=== PATIENT | female | born 2000 | race Caucasian/White ===

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

== ENCOUNTER 2022-01-26 11:26 | Emergency (ER) | payer BC, SELFPAY ==
--- NOTE | 2022-01-26 11:50 | ED.SKABFB ---
HPI - Skin/Abscess/Foreign Bdy General Chief complaint: Ear Stated complaint: bumps in ear around piercing Time Seen by Provider: 01/26/22 11:50 Source: patient Mode of arrival: ambulatory Limitations: no limitations History of Present Illness HPI narrative: 21 yo F presents with c/o redness and some mild drainage from ear piercing to R ear cartilage for past 2 to 3 days. States she has had ear piercing for several months and always seems to be irritated. recently notice bump or skin growth to entrance and exit hole of earring. Concerned for keloid. All systems reviewed and negative excpet as noted above. Related Data Home Medications Medication Instructions Recorded Confirmed norelgestromin 150 mcg-e.estradiol See Rx Instructions .Route .COMPLEX 01/21/21 06/26/21 35 mcg/24 hr weekly transderm patch (Zafemy) Allergies Allergy/AdvReac Type Severity Reaction Status Date / Time cefdinir Allergy Mild Hives Verified 06/26/21 08:22 clarithromycin AdvReac Mild Nausea and Verified 06/26/21 08:22 Vomiting Review of Systems Review of Systems: CONSTITUTIONAL: Denies fever, chills, or sweats. EYES: Denies visual changes, redness, or discharge. ENT: Denies rhinorrhea, congestion, sore throat, or otalgia. CARDIOVASCULAR: Denies chest pain, palpitations, or edema. RESPIRATORY: Denies cough or dyspnea. GASTROINTESTINAL: Denies abdominal pain, nausea, vomiting, or diarrhea. GENITOURINARY: Denies dysuria or hematuria. SKIN: Denies rash or itching. Reports redness, swelling, drainage to right ear piercing. MUSCULOSKELETAL: Denies back pain, joint pain, or myalgia. NEUROLOGIC: Denies headache, numbness, or weakness. PSYCHIATRIC: Denies anxiety or depression. All other systems reviewed are negative, except as documented in HPI. [facility] Past Medical History Medical History Anemia Anxiety Ear infection Fracture of finger of left hand IgA deficiency Traumatic brain injury Surgical History Surgical History History of placement of ear tubes Family History Family History (Updated 06/26/21 @ 08:18 by MICHAEL Fernandez) Other Family history non-contributory Social History Social History Gender identity (if verbalized by the patient): Female Comments At time of signature, agree with nursing past medical, surgical, social and family history. There is no relevant family history pertinent to the presenting complaint. Exam Narrative: GENERAL: This is a well-nourished, well-developed patient, in no apparent distress. HEAD: normocephalic, atraumatic. EYES: PERRL. Sclera clear/white. Vision is grossly intact. EARS: R ear piercing at the helix into the cartilage. mild erythema, swelling. no drainage. possible keloid noted at entrance and exit of piercing. NOSE: External nose normal NECK: Neck supple, non-tender without lymphadenopathy, masses or thyromegaly. CARDIOVASCULAR: Regular rate and rhythm without murmurs, gallops, or rubs. RESPIRATORY: Clear to auscultation. Breath sounds equal bilaterally. No wheezes, rales, or rhonchi. SKIN: warm, Dry, intact with no suspicious lesions or rash, good texture and turgor. NEURO: awake, alert, and oriented to person, place and time. There were no obvious focal neurologic abnormalities. EXTREMITIES: No joint tenderness, effusion, or edema noted. Course Course Level of Care: Express Care Visit Vital Signs Vital signs: Vital Signs Pulse Rate 93 01/26/22 11:52 Respiratory Rate 16 01/26/22 11:52 Blood Pressure 130/74 01/26/22 11:52 Pulse Oximetry 100 01/26/22 11:52 Oxygen Delivery Room Air 01/26/22 11:52 Temperature 37.6 C 01/26/22 12:03 Pulse Rate 93 01/26/22 11:52 Respiratory Rate 16 01/26/22 11:52 Blood Pressure 130/74 01/26/22 11:52 Pulse Oximetry 100
[2022-01-26 11:52] VITALS: BP 130/74; PULSE 93; RESP 16; O2SAT 100
[2022-01-26 12:03] VITALS: TEMP 37.6
== END 2022-01-26 12:20 | disposition home or self-care (01) ==
PROVIDERS: Emergency Provider Nurse Practitioner Family
DX: H60.391 Other infective otitis externa, right ear (principal); D80.2 Selective deficiency of immunoglobulin A [IgA]
CPT/HCPCS: 99211; G0463

== ENCOUNTER 2022-05-14 10:28 | Emergency (ER) | payer BC, SELFPAY ==
--- NOTE | 2022-05-14 10:30 | ED.DENTAL ---
HPI - Dental/Oral General Chief complaint: Dental/Oral Stated complaint: Toothaceh/Ear Pain Time Seen by Provider: 05/14/22 10:30 Source: patient and RN notes reviewed History of Present Illness HPI Narrative: Patient is a 22-year-old female who presents to the Urgent Care with complaints of left sore throat and left ear pain. Patient states that she is aware that she has a wisdom tooth coming in and has an appointment with her oral surgeon in 2 weeks. Patient states that she does not run fevers due to her autoimmune disorder. Denies any nausea or vomiting. States that she has been using Tylenol and ibuprofen as needed for discomfort. No other acute complaints. No acute distress noted. Patient aware of the plan of care. Some parts of this dictation were generated by voice recognition software and may contain typographical and/or grammatical inaccuracies. Related Data Home Medications Medication Instructions Recorded Confirmed norelgestromin 150 mcg-e.estradiol See Rx Instructions .Route .COMPLEX 01/21/21 05/14/22 35 mcg/24 hr weekly transderm patch (Zafemy) Allergies Allergy/AdvReac Type Severity Reaction Status Date / Time cefdinir Allergy Mild Hives Verified 06/26/21 08:22 clarithromycin AdvReac Mild Nausea and Verified 06/26/21 08:22 Vomiting Review of Systems Review of Systems: CONSTITUTIONAL: Denies fever, chills, or sweats. EYES: Denies visual changes, redness, or discharge. ENT: Reports of a sore on the left side of the mouth, and left otalgia CARDIOVASCULAR: Denies chest pain, palpitations, or edema. RESPIRATORY: Denies cough or dyspnea. GASTROINTESTINAL: Denies abdominal pain, nausea, vomiting, or diarrhea. GENITOURINARY: Denies dysuria or hematuria. SKIN: Denies rash or itching. MUSCULOSKELETAL: Denies back pain, joint pain, or myalgia. All other systems reviewed are negative, except as documented in HPI. [facility] Past Medical History Medical History Anemia Anxiety Ear infection Fracture of finger of left hand IgA deficiency Traumatic brain injury Surgical History Surgical History History of placement of ear tubes Family History Family History (Updated 06/26/21 @ 08:18 by MICHAEL Fernandez) Other Family history non-contributory Social History Social History Gender identity (if verbalized by the patient): Female Comments At the time of my signature, I reviewed and agree with the nursing past medical, surgical, social, and family history. There is no relevant family history pertinent to the patient complaint. Exam Narrative: GENERAL: This is a well-nourished, well-developed patient, in no apparent distress. HEAD: normocephalic, atraumatic. EYES: PERRL. Sclera clear/white. Vision is grossly intact. EARS: External ears normal, auditory canals clear and without drainage, TMs normal without perforation. Hearing grossly intact. NOSE: External nose normal with no obvious nasal discharge, nares without redness, no rhinorrhea. THROAT: Mucous membranes moist, posterior pharynx clear. ulceration noted to the palatine tonsil of the posterior oropharynx with [id number] surrounding erythema DENTAL: notable impacted wisdom tooth without signs or symptoms of infection , #17. NECK: Neck supple, non-tender without lymphadenopathy, masses or thyromegaly. CARDIOVASCULAR: Regular rate and rhythm without murmurs, gallops, or rubs. RESPIRATORY: Clear to auscultation. Breath sounds equal bilaterally. No wheezes, rales, or rhonchi. SKIN: warm, intact with no suspicious lesions or rash, good texture and turgor. NEURO: awake, alert, and oriented to person, place and time. There were no obvious focal neurologic abnormalities. EXTREMITIES: No clubbing, cyanosis, or edema. Course Course Level of Care: [facility]
[2022-05-14 10:34] VITALS: BP 114/50; PULSE 70; RESP 16; TEMP 36.8; O2SAT 100
[2022-05-14 10:41] VITALS: BP 114/50; PULSE 70; RESP 16; TEMP 36.8; O2SAT 100
== END 2022-05-14 10:49 | disposition home or self-care (01) ==
PROVIDERS: Emergency Provider Nurse Practitioner Family
DX: K12.1 Other forms of stomatitis (principal)
CPT/HCPCS: 99213; G0463

== ENCOUNTER → 2022-12-27 11:20 | Outpatient (CLI) | payer BC, SELFPAY ==
--- NOTE | ~2022-12-27 | US_ITS ---
US breast RT complete DATE: 12/27/2022 11:43 INDICATION: Right breast lump TECHNIQUE: Real-time imaging, color flow imaging of right breast COMPARISON: None FINDINGS: At 12:00 7 cm from the nipple at the area of palpable abnormality there is a parallel circu mscribed hypoechoic 5 x 11 x 6.6 mm hypoechoic lesion without internal vascularity or posterior shado wing, benign in appearance. No suspicious mass or shadowing is detected in the right breast. IMPRESSION: Benign finding BI-RADS Category 2: Benign Reviewed, dictated and finalized at [facility]. Reviewed, dictated and finalized at location [facility].
== END ==
PROVIDERS: PCP Obstetrics & Gynecology Gynecology; Visit Provider Obstetrics & Gynecology Gynecology
DX: N63.10 Unspecified lump in the right breast, unspecified quadrant (principal)
CPT/HCPCS: 76641

== ENCOUNTER 2023-05-03 09:04 | Emergency (ER) | payer BC, SELFPAY ==
[2023-05-03 09:12] VITALS: BP 111/68; PULSE 78; RESP 16; TEMP 36.4; O2SAT 99
--- NOTE | 2023-05-03 09:27 | ED.FEMALEGU ---
HPI - Female Genitourinary General Chief complaint: Urogenital-Female Stated complaint: Urinary Problem Time Seen by Provider: 05/03/23 09:27 Source: patient Mode of arrival: ambulatory Limitations: no limitations History of Present Illness HPI Narrative: 23-year-old female presents with complaint urinary frequency, urgency, dysuria and itching after urinating. Symptoms started last night. Afebrile. Denies nausea vomiting. Patient currently on her period. Concern for urinary tract infection. All systems reviewed and negative except as noted above. Related Data Allergies Allergy/AdvReac Type Severity Reaction Status Date / Time cefdinir Allergy Mild Hives Verified 05/03/23 09:34 clarithromycin AdvReac Mild Nausea and Verified 05/03/23 09:34 Vomiting Review of Systems Review of Systems: CONSTITUTIONAL: Denies fever, chills, or sweats. EYES: Denies visual changes, redness, or discharge. ENT: Denies rhinorrhea, congestion, sore throat, or otalgia. CARDIOVASCULAR: Denies chest pain, palpitations, or edema. RESPIRATORY: Denies cough or dyspnea. GASTROINTESTINAL: Denies abdominal pain, nausea, vomiting, or diarrhea. GENITOURINARY: Reports dysuria, urgency, frequency. Denies hematuria. SKIN: Denies rash or itching. MUSCULOSKELETAL: Denies back pain, joint pain, or myalgia. NEUROLOGIC: Denies headache, numbness, or weakness. PSYCHIATRIC: Denies anxiety or depression. All other systems reviewed are negative, except as documented in HPI. [facility] Past Medical History Medical History Anemia Anxiety Ear infection Fracture of finger of left hand IgA deficiency Traumatic brain injury Surgical History Surgical History History of placement of ear tubes Family History Family History (Updated 06/26/21 @ 08:18 by MICHAEL Fernandez) Other Family history non-contributory Social History Social History Living arrangements: with family Gender identity (if verbalized by the patient): Female Comments At time of signature, agree with nursing past medical, surgical, social and family history. There is no relevant family history pertinent to the presenting complaint. Exam Narrative: GENERAL: This is a well-nourished, well-developed patient, in no apparent distress. HEAD: normocephalic, atraumatic. EYES: PERRL. Sclera clear/white. Vision is grossly intact. EARS: External ears normal NOSE: External nose normal NECK: Neck supple, non-tender without lymphadenopathy, masses or thyromegaly. CARDIOVASCULAR: Regular rate and rhythm without murmurs, gallops, or rubs. RESPIRATORY: Clear to auscultation. Breath sounds equal bilaterally. No wheezes, rales, or rhonchi. SKIN: warm, Dry, intact with no suspicious lesions or rash, good texture and turgor. NEURO: awake, alert, and oriented to person, place and time. There were no obvious focal neurologic abnormalities. EXTREMITIES: No joint tenderness, effusion, or edema noted. Course Course Level of Care: Express Care Visit Vital Signs Vital signs: Vital Signs Temperature 36.4 C 05/03/23 09:12 Pulse Rate 78 05/03/23 09:12 Respiratory Rate 16 05/03/23 09:12 Blood Pressure 111/68 05/03/23 09:12 Pulse Oximetry 99 05/03/23 09:12 Oxygen Delivery Room Air 05/03/23 09:12 Temperature 36.4 C 05/03/23 09:12 Pulse Rate 78 05/03/23 09:12 Respiratory Rate 16 05/03/23 09:12 Blood Pressure 111/68 05/03/23 09:12 Pulse Oximetry 99 05/03/23 09:12 Oxygen Delivery Room Air 05/03/23 09:12 Reviewed MDM - Female Genitourinary MDM Narrative Medical decision making narrative: Patient is aware of diagnosis, understands and agrees to treatment plan. Anticipatory guidance given. Patient agrees to follow-up as directed and is aware of reasons to seek care at
== END 2023-05-03 09:45 | disposition home or self-care (01) ==
PROVIDERS: Emergency Provider Nurse Practitioner Family; PCP Physician Assistant
DX: N39.0 Urinary tract infection, site not specified (principal); B96.20 Unspecified Escherichia coli [E. coli] as the cause of diseases classified elsewhere
CPT/HCPCS: 81003; 87077; 87086; 87186; 99213; G0463

== ENCOUNTER 2023-07-16 11:39 | Emergency (ER) | payer BC, SELFPAY ==
--- NOTE | 2023-07-16 11:44 | ED.NAVMDI ---
HPI - Nausea/Vomiting/Diarrhea General Chief complaint: Nausea/Vomiting/Diarrhea Stated complaint: Nausea/Body Ache Time Seen by Provider: 07/16/23 11:46 Source: patient and RN notes reviewed Mode of arrival: other Limitations: no limitations History of Present Illness HPI Narrative: 23-year-old female presents concern for nausea. She reports 1 week history of nausea without vomiting or diarrhea. She reports increased in urine frequency. She reports abdominal cramping. She reports she has been eating and drinking but not as much as usual. She denies abdominal pain. She reports chills and occasional body aches. She denies sore throat, cough. Reports some mild rhinorrhea nasal congestion. She reports her last menstrual period was about 3 weeks ago. She reports her urine is slightly darker than usual, otherwise denies frequency, urgency, dysuria. She reports low-grade temperature MD elicited complaint: nausea, vomiting and diarrhea Related Data Allergies Allergy/AdvReac Type Severity Reaction Status Date / Time cefdinir Allergy Mild Hives Verified 07/16/23 11:47 clarithromycin AdvReac Mild Nausea and Verified 07/16/23 11:47 Vomiting Review of Systems Review of Systems: CONSTITUTIONAL: Denies malaise. Reports chills, low-grade fever. ENT: Denies rhinorrhea, congestion, sinus pain, otalgia or sore throat. CARDIOVASCULAR: Denies chest pain, palpitations, or edema. RESPIRATORY: Denies cough or dyspnea. GASTROINTESTINAL: Denies abdominal pain,vomiting, diarrhea. Reports nausea GENITOURINARY: Denies dysuria or hematuria. MUSCULOSKELETAL: Reports myalgia. NEUROLOGIC: Denies headache. All systems reviewed & are unremarkable except as noted in HPI and below PMFSH Past Medical History Medical History Anemia Anxiety Ear infection Fracture of finger of left hand IgA deficiency Traumatic brain injury Surgical History Surgical History History of placement of ear tubes Family History Family History (Updated 06/26/21 @ 08:18 by MICHAEL Fernandez) Other Family history non-contributory Social History Social History Living arrangements: with family Gender identity (if verbalized by the patient): Female Comments At time of signature, agree with nursing past medical, surgical, social and family history. There is no relevant family history pertinent to the presenting complaint Exam Narrative: GENERAL: Well-appearing, well-nourished, and in no acute distress. HEAD: Normocephalic, atraumatic. EYES: PERRLA, conjunctivae clear, and EOMI. ENT: Nares clear, turbinates pink, no rhinorrhea or epistaxis. Mucous membranes moist. Oropharynx without edema, erythema, or lesions. Tonsils not enlarged and without exudate. NECK: Supple. No lymphadenopathy CHEST: Speaks in full sentences. No respiratory distress. HEART: Regular rate and rhythm. ABDOMEN: Soft, flat, nondistended. Mild suprapubic tenderness, otherwise nontender. No guarding, rebound tenderness, or rigidity. No pulsatile masses. Bowel sounds present in all four quadrants. No organomegaly. Negative Lowe?s sign. No periumbilical tenderness. No Supra public distension. SKIN: Warm, dry, no rash. NEURO: Alert and oriented x3. PSYCH: Normal mood and affect Course Course Emergency Course: Patient is aware of diagnosis, understands and agrees to treatment plan. Anticipatory guidance given. Patient agrees to follow-up as directed and is aware of reasons to seek care at the emergency department. Portions of this record may have been created with voice recognition software Level of Care: Express Care Visit Vital Signs Vital signs: Reviewed. MDM - Nausea/Vomiting/Diarrhea MDM Narrative Medical decision making narrative: No evidence of pancreatitis, AAA, cholecystitis, c
[2023-07-16 11:47] VITALS: BP 125/34; PULSE 101; RESP 18; TEMP 37.6; O2SAT 100
[2023-07-16 11:48] VITALS: BP 125/34; PULSE 101; RESP 18; TEMP 37.6; O2SAT 100
== END 2023-07-16 12:15 | disposition home or self-care (01) ==
PROVIDERS: Emergency Provider Nurse Practitioner; PCP Physician Assistant
DX: R11.0 Nausea (principal)
CPT/HCPCS: 81003; 81025; 87086; 87088; 99213; G0463

== ENCOUNTER 2023-07-19 07:56 | Emergency (ER) | payer BC, SELFPAY ==
[2023-07-19] VITALS (14 sets, daily range): BP systolic 94–135; BP diastolic 48–98; PULSE 74–85; RESP 14–16; TEMP 36.2–36.8; O2SAT 97–100
--- NOTE | ~2023-07-19 | CT_ITS ---
EXAMINATION: CT abdomen pelvis w con DATE: 07/19/2023 11:29 INDICATION: Right flank pain. Right lower quadrant abdominal pain. Nausea. TECHNIQUE: Computed tomography (CT) of the abdomen and pelvis was performed with 100 mL Omnipaque 350 intravenous contrast. Automated exposure control and iterative reconstruction technique were employe d. The dose-length product was 193.45 mGy-cm. COMPARISON: None. FINDINGS: The visualized portions of the lung bases are clear without pneumonia or pleural effusion. The heart size is normal. No pericardial effusion. The liver, gallbladder, spleen, pancreas, adrenal glands, and kidneys are normal. There are no dilated loops of bowel. The appendix is normal. There is a right-sided hydrosalpinx. There is physiologic fluid in the pelvis. There are no pathologically en larged lymph nodes. The bones are unremarkable. IMPRESSION: 1. Right-sided hydrosalpinx. Reviewed, dictated and finalized at location [facility]. TER
[2023-07-19 08:46] LABS: Basophils Percent Auto 0.2 % (0.2-1.2); Eosinophils Absolute Auto 0.1 K/mm3 (0-0.3); Eosinophils Percent Auto 1.7 % (0-4.4); Hematocrit 38.6 % (37.0-47.0); Hemoglobin 12.3 g/dL (12.0-15.0); Immature Granulocyte Absolute 0.02 K/mm3 (0.00-0.031); Immature Granulocyte Percent A 0.2 % (0-0.5); Lymphocytes Absolute Auto 1.24 K/mm3 (0.9-3.2); Lymphocytes Percent Auto 15.3 % (18.3-44.2); Mean Corpuscular HGB Conc 31.9 g/dl (32-36); Mean Corpuscular Hemoglobin 27.8 pg (26-34); Mean Corpuscular Volume 87.1 fl (80-100); Mean Platelet Volume 11.3 fl (7.4-10.4); Monocytes Absolute Auto 0.8 K/mm3 (0.1-0.6); Monocytes Percent Auto 9.6 % (2.6-8.5); Neutrophils Absolute Auto 5.9 K/mm3 (1.3-6.7); Platelet Count Result 297 k/mm3 (150-375); Red Blood Count 4.43 M/mm3 (4.2-5.4); White Blood Count 8.1 K/mm3 (4.5-10.0)
[2023-07-19 08:59] LABS: Alanine Aminotransferase 13 U/L (6-35); Albumin Level 4.9 g/dL (3.5-5.1); Alkaline Phosphatase 60 U/L (38-126); Anion Gap 8 mmol/L (8-16); Aspartate Amino Transferase 19 U/L (14-36); Bilirubin,Total 0.4 mg/dL (0.2-1.3); Blood Urea Nitrogen 9 mg/dL (7-17); Calcium 9.6 mg/dL (8.4-10.2); Carbon Dioxide 27 mmol/L (22-30); Chloride 107 mmol/L (98-107); Estimated Glomerular Filt Rate > 60; Glucose 90 mg/dL (65-110); Lipase 63 U/L (23-300); Potassium 3.9 mmol/L (3.4-5.0); Sodium 142 mmol/L (137-145)
[2023-07-19 09:27] LABS: Appearance Urine Clear (Clear); Bacteria Urine 1+ /hpf; Bilirubin Urine Negative (Negative); Blood Urine Negative (Negative); Color Urine Yellow (Yellow); Glucose Urine UA Negative (Negative); Ketones Urine Trace mg/dL (Negative); Leukocyte Esterase Ur Trace LEU/UL (Negative); Need Manual Microscopic Reviewed; Nitrate Urine Negative (Negative); Non Pathogenic Casts 0-2; Protein Urine Negative (Negative); RBC Urine 0-2 /hpf (0-2); Specific Grav Ur 1.022 (1.001-1.035); Squamous Epithelial Cell Urine Few /hpf (Few); Urobilinogen Urine 0.2 mg/dL (<2.0)
--- NOTE | 2023-07-19 09:33 | ED.ABDPAIN ---
HPI - Abdominal Pain General Chief Complaint: Abdominal Pain Stated Complaint: abdomen pain Time Seen by Provider: 07/19/23 09:03 History of Present Illness HPI narrative: Patient is a 23-year-old female who presents to the emergency department this afternoon complaining of nausea, RLQ abdominal pain and loss of appetite. Patient's symptoms have been ongoing for the past 2-4 weeks and patient states that her symptoms have been worsening this past week. Patient went to an urgent care and was provided Zofran, however, patient states that it has not improved her symptoms. Patient states that the pain is in the right lower quadrant region and wraps around to her right flank. She denies a urinary symptoms including dysuria or hematuria but states that she feels as though her urine output has decreased. Patient admits that she has not been drinking or eating much due to her nausea and loss of appetite. She has had some episodes of vomiting, nonbloody nonbilious emesis. Patient denies any chest pain or shortness breath at this time and denies any fevers or chills at home. She denies any exposure to sick contacts and denies any additional symptoms. The remainder of the history of present illness and review of systems is negative unless stated otherwise in the HPI. Related Data Allergies Allergy/AdvReac Type Severity Reaction Status Date / Time cefdinir Allergy Mild Hives Verified 07/16/23 11:47 clarithromycin AdvReac Mild Nausea and Verified 07/16/23 11:47 Vomiting Review of Systems Review of Systems: All systems are reviewed and are negative unless stated otherwise in the HPI. [facility] Past Medical History Medical History Anemia Anxiety Ear infection Fracture of finger of left hand IgA deficiency Traumatic brain injury Surgical History Surgical History History of placement of ear tubes Family History Family History Other Family history non-contributory Social History Social History Living arrangements: with family Gender identity (if verbalized by the patient): Female Exam Narrative: General: Alert, awake, afebrile, in no acute distress. HEENT: PERRL, no rhinorrhea, no post nasal drip, oropharynx clear. Neck: Trachea midline, no JVD, no lymphadenopathy. Cardiovascular: Regular rate and rhythm, no murmurs, rubs or gallops, no peripheral edema. Respiratory: Clear to auscultation bilaterally, no tachypnea, no wheezing, no rhonchi, no rubs, no respiratory distress. Abdomen: Soft, mild tenderness to palpation over the right lower quadrant, nondistended, no rebound, no guarding, no peritoneal signs. Musculoskeletal: No joint swelling or deformity, normal muscle tone. Skin: No rashes or petechia, no signs of infection. Psychiatric: Alert and oriented, normal behavior and judgment for situation. Neurological: Alert and oriented to person, place, and time. Follows all commands. No focal deficits, speech is clear and fluent. Course Vital Signs Vital signs: Vital Signs Pulse Rate 78 07/19/23 08:02 Respiratory Rate 16 07/19/23 08:02 Blood Pressure 122/70 07/19/23 08:02 Pulse Oximetry 99 07/19/23 08:02 Temperature 97.9 F 07/19/23 13:27 Pulse Rate 78 07/19/23 13:27 Respiratory Rate 16 07/19/23 13:27 Blood Pressure 126/79 07/19/23 13:27 Pulse Oximetry 98 07/19/23 13:27 MDM - Abdominal Pain MDM Narrative Medical decision making narrative: The patient was evaluated by myself in the emergency department. History is obtained from patient who is an independent historian and physical exam was performed. External medical records were reviewed at this time. IV was established and pertinent tests were ordered. Patient was administered a 1 L IV fluid bolus w
[2023-07-19 09:34] LABS: Add Urine Microscopic? YES
[2023-07-19] MEDS: SODIUM CHLORIDE 0.9% IV 1,000 ML 999 ML IV CONT (09:36)
[2023-07-19] MEDS: ONDANSETRON INJ 4 MG/2 ML VIAL IV PUSH (09:36)
[2023-07-19 10:23] LABS: Influenza A QL RT-PCR Negative (Negative); Influenza B QL RT-PCR Negative (Negative); SARS-CoV-2 RNA PCR Negative (Negative)
[2023-07-19 10:39] LABS: SPREG INTERNAL CONTROL Positive; Serum Qual hCG Negative
[2023-07-19] MEDS: KETOROLAC 15 MG/ML VIAL (*BKC) IV PUSH (12:02)
== END 2023-07-19 15:25 | disposition home or self-care (01) ==
PROVIDERS: Emergency Provider Emergency Medicine; PCP Physician Assistant
DX: N70.11 Chronic salpingitis (principal); Z20.822 Contact with and (suspected) exposure to COVID-19; D80.2 Selective deficiency of immunoglobulin A [IgA]; Z87.820 Personal history of traumatic brain injury; Z86.2 Personal history of diseases of the blood and blood-forming organs and certain disorders involving the immune mechanism
CPT/HCPCS: 36415; 74177; 80053; 81001; 81025; 83690; 84703; 85025; 87086; 87636; 96361; 96374; 96375; 99284; J1885; J2405; J7030; Q9967

== ENCOUNTER 2023-07-22 10:17 | Outpatient (CLI) | payer BC, SELFPAY ==
--- NOTE | ~2023-07-22 | US_ITS ---
EXAMINATION: US pelvic complete DATE: 07/22/2023 10:51 INDICATION: Right-sided pelvic pain Comparison:No prior studies for comparison. TECHNIQUE: Multiple transabdominal sonographic images of the pelvis performed. FINDINGS: The uterus measures 9.7 x 3.3 x 4 cm. The endometrial complex measures 8 mm. The right ovary measures 4.9 x 3.6 x 3.5 cm and the left ovary measures 3.7 x 1.9 x 2 cm. There is a septated 3.2 cm right ovarian cyst. There are small follicles in each ovary. Normal doppler signal in both ovaries. There is no free fluid in the pelvis. There are no abnormal masses seen on either side. IMPRESSION: 1. Septated 3.2 cm right ovarian cyst. Reviewed, dictated and finalized at location [address]
== END 2023-07-22 10:18 | disposition home or self-care (01) ==
PROVIDERS: PCP Physician Assistant; Visit Provider Obstetrics & Gynecology
DX: N83.291 Other ovarian cyst, right side (principal)
CPT/HCPCS: 76856

== ENCOUNTER 2023-07-25 00:31 | Day surgery (SDC) | payer BC, SELFPAY ==
[2023-07-22 15:02] VITALS: BMI 18.1
--- NOTE | 2023-07-22 15:08 | PC.NURSE ---
Addendum entered by Uma Pierce RN 07/24/23 14:01: PT TO ARRIVE AT 0730 ON 07/25/23 FOR SURGERY AT 0930. Original Note: Report to the Outpatient Waiting Room, entrance under the green pavilion located off [facility], at time 1230 on date 07/26/23. Planned Procedure Time: 1430. Time changes happen often and if your time is changed the preop area will call you the afternoon before. - You and your visitor will be asked to self-screen and do not enter if you have any COVID symptoms. - A mask is optional within the hospital at this time. Patients may have clear liquids (water, carbonated beverages, clear teas, apple juice) until 3 hours prior to surgery with a maximum of 20 ounces. - No food from midnight until time of surgery Take the following medications with a SIP of water the morning of surgery: TYLENOL IF NEEDED DO NOT STOP ANY OF YOUR OTHER PRESCRIPTION MEDICATIONS PRIOR TO SURGERY ?EXCEPT THE FOLLOWING Medications to discontinue per physician: N/A Date to take last dose: N/A Please no make-up, nail yi, hairspray, perfume, deodorant, or body powder the day of surgery. No jewelry (including any body piercings) or valuables the day of surgery, leave them at home. Please take a shower or bath the night before, or the morning of, surgery with an antibacterial soap. Wear comfortable, loose fitting clothing. - Jewelry must be removed prior to entering the operating room. Rings and piercings that are not removed may be cut off. - The hospital will not accept responsibility for valuables. - Please leave all valuables, including medications, at home the day of surgery. If you are going home after surgery, a licensed lokie driver must drive you home. - NO public transportation without another adult if you receive anesthesia. - We recommend that an adult stay with you for 24 hours following discharge. - We also recommend that you do not drive, make important decision, drink alcoholic beverages, or take any drugs that were not prescribed by your health care provider for at least 24 hours after your discharge time. Follow any additional instructions given to you from your surgeon. If you or anyone in your household have experienced Covid symptoms in the past week, please notify your surgeon or the nurse liaison at the phone number below for possible testing. Telephone instructions given to PT - HARJINDER SHEIKH and asked if any additional questions and then verbalized understanding. Patient advised to call surgeon office or pre surgery nurse liaison [phone] if any additional questions.
--- NOTE | 2023-07-24 14:01 | PC.NURSE ---
Pt states no changes in medications or health history since initial interview. New pre-op instructions reviewed with pt. Pt denies further questions at this time.
[2023-07-25] VITALS (11 sets, daily range): BP systolic 112–130; BP diastolic 53–81; PULSE 67–97; RESP 12–20; TEMP 36.2–37.1; O2SAT 96–100
[2023-07-25] MEDS: ACETAMINOPHEN 500 MG TABLET 1000 MG PO (08:24)
[2023-07-25] MEDS: KETOROLAC 15 MG/ML VIAL (*BKC) IV PUSH (08:56)
--- NOTE | 2023-07-25 09:25 | WPDHPUPDATE1 ---
History and Physical Update Update Date/Time: 07/25/23 09:25 Plan: 1. laparoscopy 2. ovarian cystectomy (right) 3. possible ablation endometriosis 4. possible salpingectomy (right) History and Physical has been reviewed, including an updated exam of the patient. There are NO changes in the patient's condition. Risks, benefits, and alternatives have been discussed and questions answered. Patient agrees to proceed with procedure.
--- NOTE | 2023-07-25 09:42 | WPDANESEPPF ---
Anes - Initial Pre Proc Eval Procedure: Operation Date: 07/25/23 10:00 Proposed Procedures p Robotic Diagnostic Laparoscopy Possible Fulguration of Endometrial Cyst, Right Salpingectomy - Erlin Spangler MD Date/Time: 07/25/23 09:42 Surgeon: Erlin Spangler MD Pre Op Diagnosis: pelvic pain, right hydrosalpinx Patient Data Age: 23 Gender: F Height: 1.63 m Weight: 44.8 kg Last Vital Signs Temp 98.7 F 07/25/23 08:39 Pulse 83 07/25/23 08:39 Resp 16 07/25/23 08:39 BP 117/53 L 07/25/23 08:39 Pulse Ox 100 07/25/23 08:39 O2 Del Method Room Air 07/25/23 08:39 Allergies Allergy/AdvReac Type Severity Reaction Status Date / Time cefdinir Allergy Mild Hives Verified 07/25/23 08:20 clarithromycin AdvReac Mild Nausea and Verified 07/25/23 08:20 Vomiting Home Medications Medication Instructions Recorded Confirmed Type acetaminophen 500 mg tablet 500 mg PO Q6H PRN Pain 07/22/23 07/25/23 History (Tylenol Extra Strength) hydrocodone 5 mg-acetaminophen 300 1 tablet PO Q6H PRN pain #20 tabs 07/22/23 07/25/23 Rx mg tablet ibuprofen 200 mg tablet 200 mg PO Q6H PRN Pain 07/22/23 07/25/23 History progesterone micronized 200 mg 200 mg PO QHS 10 days #10 caps 07/22/23 07/25/23 Rx capsule (Prometrium) Laboratory Tests 07/25/23 08:35 Blood Type A Positive Antibody Screen Negative Patient hx anesthesia problems: post op nausea/vomiting Family hx anesthesia problems: none Results Review: All pre-operative results and documents have been reviewed as part of the pre-operative evaluation. [facility] Past Medical History Medical History (Updated 07/22/23 @ 09:38 by Erlin Spangler MD) Anemia Anxiety Ear infection Fracture of finger of left hand IgA deficiency Traumatic brain injury Surgical History Surgical History (Updated 07/22/23 @ 09:12 by Ro Dillon MA) History of orthopedic surgery pins in finger History of placement of ear tubes [place] teeth extracted Family History Family History (Updated 01/22/24 @ 09:13 by Ro Dillon MA) Daughter No problems noted. Mother Endometriosis Grandparent Endometriosis Uterine cancer Other Family history non-contributory Social History Social History (Updated 07/22/23 @ 09:14 by Ro Dillon MA) Smoking status: Never smoker Alcohol intake: never Substance use: current Substance use type: marijuana Do You Feel Safe in your Home?: Yes Lack of Transportation: No Lack of Food: Never True Current Housing: I Have Housing Concerned About Future Housing: No Difficulty Paying Gas/Electric Bills: No Difficulty Paying for Meds: No Currently Unemployed: No Education: Associate Degree Difficulty w/ Childcare or Family Care: No Living arrangements: with family Occupation/Education: occupation Gender identity (if verbalized by the patient): Female Sexual Orientation (if Verbalized by the Patient): Straight or Heterosexual Spiritual care concerns: No Anes - Eval Final PreProcedure Day of Procedure 07/25/23 09:42 Patient weight: normal Heart: regular rate and rhythm Lungs: clear to auscultation Airway: Mallampati scale class II Neurological: alert and oriented Last oral intake: >/= 8 hours ASA classification: III Emergent: no Anesthetic plan: proceed Anesthesia type and monitoring: general ETT and standard monitoring Results Review: All pre-operative results and documents have been reviewed as part of the pre-operative evaluation. Informed Consent: The patient's anesthetic plan and its attendant risks and benefits were discussed with the patient/family/POA. Questions were solicited and answers provided to the satisfaction of the patient/family/POA.
[2023-07-25] MEDS: SCOPOLAMINE 1 MG PATCH 1 PATCH TRANSDERM (10:00)
--- NOTE | 2023-07-25 10:55 | W.PM.PROC2 ---
Procedure Note - Detailed Date of Procedure 07/25/23 Pre-op Diagnosis 1. Pelvic pain 2. Right ovarian cyst Post-op Diagnosis Same (2. Right ovarian cyst 3. Endometriosis) Procedure Performed Robotic assisted laparoscopic evaluation, right ovarian cystectomy, ablation of endometriosis Surgeon Erlin Spangler MD Anesthesia General Findings Uterus left tube and ovary without abnormality. Right tube without abnormality, 3-4 cm cyst noted in the ovary Peritoneal endometriosis (minimal with four dark spots noted) Description of Procedure Patient prepped and draped usual manner for this procedure. Cervical instruments were placed for uterine mobility during the case. Trocar sites were marked and placed under direct visualization. Attached to the Pan[employer] system and instruments were placed through the trocars as well. Evaluation of the pelvis revealed findings as above, significant positive for right ovarian cyst as well as for posterior cul-de-sac areas of endometriosis. The endometriosis areas were cauterized, 1 was biopsied for confirmation. The right ovary was incised and cyst was removed intact. Irrigation was undertaken with no significant bleeding and Marivel was placed empirically on the bed of the biopsy site. Irrigation was undertaken and there was no significant bleeding. Gas was allowed to escape trocars removed and incisions approximated using 4-0 Monocryl. Patient was then sent to recovery room in stable condition. Estimated Blood Loss 10 Drains No Packing No Pathology Yes (1. Right ovarian cyst 2. Peritoneal biopsy) Condition Stable Disposition PACU [facility] Billing Surgery - Charge Forward: Surgery Billing
[2023-07-25] MEDS: LACTATED RINGERS 1,000 ML 30 ML IV CONT ×2 (11:10)
[2023-07-25] MEDS: fentaNYL CITRATE INJ (*CRX) 100 MCG/2 ML VIAL 25 MCG IV PUSH ×4 (11:23→11:50)
[2023-07-25] MEDS: ONDANSETRON INJ 4 MG/2 ML VIAL IV PUSH (12:01)
[2023-07-25] MEDS: diphenhydrAMINE HCl INJ 50 MG/ML VIAL 25 MG IV PUSH (12:12)
[2023-07-25] MEDS: oxyCODONE HCL (*CRX) 5 MG TAB IR PO (12:55)
== END 2023-07-25 13:54 | disposition home or self-care (01) ==
PROVIDERS: PCP Physician Assistant; Visit Provider Obstetrics & Gynecology
PROC: 8E0W4CZ Robotic Assisted Procedure of Trunk Region, Percutaneous Endoscopic Approach (ICD-10-PCS; CPT 49320; principal; 2023-07-25 10:00)
DX: N83.11 Corpus luteum cyst of right ovary (principal); D64.9 Anemia, unspecified; F41.9 Anxiety disorder, unspecified; D80.2 Selective deficiency of immunoglobulin A [IgA]; F12.90 Cannabis use, unspecified, uncomplicated; Z79.891 Long term (current) use of opiate analgesic; Z98.890 Other specified postprocedural states; Z87.820 Personal history of traumatic brain injury; Z80.49 Family history of malignant neoplasm of other genital organs
CPT/HCPCS: 58662; S2900; 36415; 86850; 86900; 86901; 88305; A9270; J1100; J1170; J1200; J1596; J1885; J2250; J2405; J2704; J2710; J3010; J7030; J7120